=== PATIENT | male | born 1955 | race Hispanic/Latino ===

== ENCOUNTER 2020-11-16 18:29 | Inpatient (IN) | payer MEDICARE, BC, MEDICAID ==
[2020-11-16 18:52] LABS: Hemoglobin 8.7 g/dL (14.0-18.0); Mean Corpuscular HGB CONC 32.1 g/dL (32.0-36.0); Mean Corpuscular Hemoglobin 32.1 pg (27.0-31.0); Mean Corpuscular Volume 99.8 fL (78.0-98.0); Mean Platelet Volume 8.6 fL (7.4-10.4); Platelet Count 108 thou/uL (130-400); RBC Distribution Width 16.3 % (11.5-14.5); White Blood Cell (WBC) Count 10.8 thou/uL (4.8-10.8)
[2020-11-16 19:03] LABS: PTT 72.5 sec (22.9-36.1); Prothrombin Time 41.3 sec (12.0-14.7)
[2020-11-16 19:05] LABS: INR-International Normal Ratio 4.3
[2020-11-16 19:13] LABS: ALT (SGPT) 8 U/L (8-55); AST (SGOT) 15 U/L (5-34); Albumin 2.3 g/dL (3.4-4.8); Alkaline Phosphatase 74 U/L (40-110); Anion Gap 11 mmol/L (10-20); BUN (Urea Nitrogen) 20 mg/dL (8.4-25.7); Bilirubin, Total 0.6 mg/dL (0.2-1.2); Calc. Creatinine Clearance 0 mL/min (70-130); Calcium 6.7 mg/dL (7.8-10.44); Carbon Dioxide 22 mmol/L (23-31); Chloride 109 mmol/L (98-107); Globulin 3.3 g/dL (2.4-3.5); Glucose 77 mg/dL (80-115); Protein, Total 5.6 g/dL (5.8-8.1); Sodium 139 mmol/L (136-145)
[2020-11-16 19:22] LABS: Anisocytosis SLIGHT = 6-15 cells (100X) (0-5/hpf); Band 27 % (5-11); Lymphocytes 6 % (21-51); MDiff Complete? YES; Monocytes 15 % (0-10); Neutrophil 51 % (42-75); Platelet Morphology Comment Appears Decreased; Polychromasia SLIGHT = 2-3 cells (100X) (0-2/hpf)
[2020-11-16 19:24] LABS: Potassium 2.7 mmol/L (3.5-5.1)
[2020-11-16 19:33] LABS: CKMB 1.2 ng/mL (0-6.6)
[2020-11-16] MEDS ORDERED: Potassium Chloride 20 MEQ TAB ONE (19:41)
[2020-11-16] MEDS ORDERED: Ondansetron ODT 4 MG TAB PO PRN (20:12)
[2020-11-16 20:36] LABS: Magnesium 1.3 mg/dL (1.6-2.6)
[2020-11-16 20:44] LABS: Phosphorus 1.9 mg/dL (2.3-4.7)
[2020-11-16] MEDS ORDERED: Magnesium 2 GM/50 ML 2 GM in Premix Bag 1 BAG IVPB SCH (20:45)
[2020-11-16] MEDS ORDERED: Heparin 5,000 UNITS/ML VIAL SC SCH (21:00)
[2020-11-16] MEDS ORDERED: PHOS-NAK 1 PKT PACK PO SCH (21:00)
[2020-11-16] MEDS ORDERED: Potassium Chloride 40 MEQ in Sodium Chloride 0.9% 250 ML 250 ML IVPB SCH (21:30)
[2020-11-16 22:33] LABS: Troponin I 0.096 ng/mL (< 0.028)
[2020-11-16 22:42] VITALS: BMI 33.3
[2020-11-17 00:07] LABS: Anion Gap 16 mmol/L (10-20); BUN (Urea Nitrogen) 26 mg/dL (8.4-25.7); Calc. Creatinine Clearance 25 mL/min (70-130); Calcium 9.4 mg/dL (7.8-10.44); Carbon Dioxide 26 mmol/L (23-31); Chloride 96 mmol/L (98-107); Glucose 80 mg/dL (80-115); Potassium 3.6 mmol/L (3.5-5.1); Sodium 134 mmol/L (136-145)
[2020-11-17 01:23] LABS: Troponin I 0.146 ng/mL (< 0.028)
[2020-11-17 05:04] LABS: Anion Gap 15 mmol/L (10-20); BUN (Urea Nitrogen) 27 mg/dL (8.4-25.7); Calc. Creatinine Clearance 24 mL/min (70-130); Calcium 9.2 mg/dL (7.8-10.44); Carbon Dioxide 23 mmol/L (23-31); Chloride 96 mmol/L (98-107); Glucose 99 mg/dL (80-115); Potassium 4.3 mmol/L (3.5-5.1); Sodium 130 mmol/L (136-145)
[2020-11-17] MEDS ORDERED: Lactated Ringer's 250 ML IV SCH ×2 (05:15→06:30)
[2020-11-17] MEDS: Acetaminophen 325 MG TAB PO PRN ×2 (05:18→15:48)
[2020-11-17 05:24] LABS: Phosphorus 3.2 mg/dL (2.3-4.7)
[2020-11-17] MEDS ORDERED: Heparin 10,000 UNITS/ 10 ML VIAL ONE (08:55)
[2020-11-17 09:01] LABS: Band 14 % (5-11); Hemoglobin 10.4 g/dL (14.0-18.0); Hypochromia SLIGHT = 6-15 cells (100X) (0-5/hpf); Lymphocytes 9 % (21-51); MDiff Complete? YES; Mean Corpuscular HGB CONC 31.3 g/dL (32.0-36.0); Mean Corpuscular Hemoglobin 31.3 pg (27.0-31.0); Mean Corpuscular Volume 99.8 fL (78.0-98.0); Mean Platelet Volume 8.6 fL (7.4-10.4); Monocytes 9 % (0-10); Neutrophil 68 % (42-75); Platelet Count 142 thou/uL (130-400); Platelet Morphology Comment Appears Adequate; Polychromasia SLIGHT = 2-3 cells (100X) (0-2/hpf); RBC Distribution Width 16.3 % (11.5-14.5); Red Blood Cell (RBC) Count 3.32 mill/uL (4.70-6.10); Vacuoles SLIGHT; White Blood Cell (WBC) Count 14.9 thou/uL (4.8-10.8)
[2020-11-17 09:28] LABS: Troponin I 0.218 ng/mL (< 0.028)
[2020-11-17] MEDS: Sucralfate 1 GM TAB PO SCH ×2 (09:44→20:18)
[2020-11-17] MEDS: Vit A,C & E/Lutein/Minerals Tablet PO SCH (09:44)
[2020-11-17] MEDS: Folic Acid/Vit B Comp W-C PO SCH (09:44)
[2020-11-17] MEDS: Apixaban 2.5 MG TAB PO SCH ×2 (09:45→20:18)
[2020-11-17] MEDS: Fish Oil 1,000 MG CAP PO SCH (09:45)
[2020-11-17] MEDS ORDERED: Lactated Ringer's 500 ML IV SCH (10:15)
[2020-11-17 10:23] LABS: Hep B Surf Ag Non-Reactive S/CO (NonReactive)
[2020-11-17] MEDS ORDERED: Albumin 25% 25 GM/100 ML BOT IVPB SCH (10:24)
[2020-11-17] MEDS: Simvastatin 10 MG TAB PO SCH (20:18)
[2020-11-18 04:40] LABS: Hemoglobin 10.4 g/dL (14.0-18.0); Mean Corpuscular HGB CONC 30.6 g/dL (32.0-36.0); Mean Corpuscular Hemoglobin 30.9 pg (27.0-31.0); Mean Platelet Volume 8.3 fL (7.4-10.4); Platelet Count 149 thou/uL (130-400); RBC Distribution Width 16.4 % (11.5-14.5); Red Blood Cell (RBC) Count 3.36 mill/uL (4.70-6.10); White Blood Cell (WBC) Count 14.1 thou/uL (4.8-10.8)
[2020-11-18 04:59] LABS: Anion Gap 14 mmol/L (10-20); BUN (Urea Nitrogen) 18 mg/dL (8.4-25.7); Calc. Creatinine Clearance 34 mL/min (70-130); Calcium 9.8 mg/dL (7.8-10.44); Carbon Dioxide 25 mmol/L (23-31); Chloride 99 mmol/L (98-107); Glucose 97 mg/dL (80-115); Potassium 3.7 mmol/L (3.5-5.1); Sodium 134 mmol/L (136-145)
[2020-11-18 05:11] LABS: Band 28 % (5-11); Hypochromia SLIGHT = 6-15 cells (100X) (0-5/hpf); MDiff Complete? YES; Monocytes 10 % (0-10); Neutrophil 62 % (42-75); Platelet Morphology Comment Appears Adequate
[2020-11-18] MEDS: Midodrine HCl 5 MG TAB PO SCH (09:37)
[2020-11-18] MEDS: Apixaban 2.5 MG TAB PO SCH ×2 (09:37→20:17)
[2020-11-18] MEDS: Vit A,C & E/Lutein/Minerals Tablet PO SCH (09:39)
[2020-11-18] MEDS: Folic Acid/Vit B Comp W-C PO SCH (09:39)
[2020-11-18] MEDS: Sucralfate 1 GM TAB PO SCH ×2 (09:39→20:17)
[2020-11-18] MEDS: Fish Oil 1,000 MG CAP PO SCH (09:39)
[2020-11-18 09:58] LABS: Prothrombin Time 31.6 sec (12.0-14.7)
[2020-11-18 09:59] LABS: PTT 66.8 sec (22.9-36.1)
[2020-11-18 11:53] LABS: Hemoglobin 10.9 g/dL (14.0-18.0); Platelet Count 156 thou/uL (130-400)
[2020-11-18] MEDS: Simvastatin 10 MG TAB PO SCH (20:17)
[2020-11-19] MEDS: Acetaminophen 325 MG TAB PO PRN (03:31)
[2020-11-19 05:17] LABS: Hemoglobin 10.8 g/dL (14.0-18.0); Mean Corpuscular HGB CONC 30.9 g/dL (32.0-36.0); Mean Corpuscular Hemoglobin 31.1 pg (27.0-31.0); Mean Platelet Volume 8.5 fL (7.4-10.4); Platelet Count 166 thou/uL (130-400); RBC Distribution Width 16.3 % (11.5-14.5); Red Blood Cell (RBC) Count 3.47 mill/uL (4.70-6.10); White Blood Cell (WBC) Count 12.8 thou/uL (4.8-10.8)
[2020-11-19 05:34] LABS: Eosinophils 1 % (0-10); Lymphocytes 5 % (21-51); MDiff Complete? YES; Monocytes 6 % (0-10); Neutrophil 88 % (42-75); Nucleated RBC 1 % (0); Platelet Morphology Comment Appears Adequate
[2020-11-19 05:35] LABS: Anion Gap 14 mmol/L (10-20); BUN (Urea Nitrogen) 27 mg/dL (8.4-25.7); Calc. Creatinine Clearance 27 mL/min (70-130); Calcium 10.3 mg/dL (7.8-10.44); Carbon Dioxide 24 mmol/L (23-31); Chloride 96 mmol/L (98-107); Glucose 118 mg/dL (80-115); Potassium 3.8 mmol/L (3.5-5.1); Sodium 130 mmol/L (136-145)
[2020-11-19] MEDS ORDERED: Heparin 10,000 UNITS/ 10 ML VIAL ONE (08:56)
[2020-11-19] MEDS: Fish Oil 1,000 MG CAP PO SCH (08:57)
[2020-11-19] MEDS: Apixaban 2.5 MG TAB PO SCH ×2 (08:57→21:49)
[2020-11-19] MEDS: Midodrine HCl 5 MG TAB PO SCH ×2 (08:57→21:49)
[2020-11-19] MEDS: Folic Acid/Vit B Comp W-C PO SCH (08:57)
[2020-11-19] MEDS: Vit A,C & E/Lutein/Minerals Tablet PO SCH (08:57)
[2020-11-19] MEDS: Sucralfate 1 GM TAB PO SCH ×2 (08:58→21:49)
[2020-11-19] MEDS ORDERED: EPOETIN ALFA-EPBX (ESRD) 4,000 UNIT/ML VIAL SC SCH (11:00)
[2020-11-19] MEDS ORDERED: Epoetin (ESRD) 20,000 UNITS/ML SC SCH (11:00)
[2020-11-19] MEDS ORDERED: Albumin 25% 25 GM/100 ML BOT IVPB PRN (12:18)
[2020-11-19] MEDS ORDERED: Dextrose 50% Abboject 50 ML SYRINGE ONE (19:36)
[2020-11-19 20:17] LABS: Actual Bicarbonate (HCO3a) 28.3 mEq/L (22-28); Base Excess (BEa) 1.1 mEq/L (-2.0 to +3.0); CO2 Tension 57.7 mmHg (35.0-45.0); Calcium, Ionized (arterial) 1.31 mmol/L (1.12-1.30); Carboxyhemoglobin (COHb) 1.3 gm% (0.0-3.0); Hemoglobin (Hb) 11.6 g/dL (14.0-18.0); Potassium - ABG Lab 3.99 mmol/L (3.70-5.30); pH, Arterial 7.31 (7.35-7.45)
[2020-11-19 20:19] LABS: O2 Tension (PaO2), arterial 45.2 mmHg (> 80.0)
[2020-11-19 20:20] LABS: ALV-art Gradient 167.875 mmHg (0-20); Puncture Site RRA
[2020-11-19 20:52] LABS: Hemoglobin 10.8 g/dL (14.0-18.0); Mean Corpuscular Hemoglobin 30.6 pg (27.0-31.0); Mean Platelet Volume 8.3 fL (7.4-10.4); Platelet Count 131 thou/uL (130-400); RBC Distribution Width 16.1 % (11.5-14.5); Red Blood Cell (RBC) Count 3.55 mill/uL (4.70-6.10)
[2020-11-19 21:11] LABS: Anion Gap 22 mmol/L (10-20); BUN (Urea Nitrogen) 37 mg/dL (8.4-25.7); Calc. Creatinine Clearance 28 mL/min (70-130); Calcium 11.1 mg/dL (7.8-10.44); Carbon Dioxide 18 mmol/L (23-31); Chloride 98 mmol/L (98-107); Glucose 126 mg/dL (80-115); Magnesium 2.1 mg/dL (1.6-2.6); Potassium 5.1 mmol/L (3.5-5.1); Sodium 133 mmol/L (136-145)
[2020-11-19 21:17] LABS: Band 10 % (5-11); Hypochromia SLIGHT = 6-15 cells (100X) (0-5/hpf); Lymphocytes 6 % (21-51); MDiff Complete? YES; Monocytes 5 % (0-10); Neutrophil 79 % (42-75); Nucleated RBC 1 % (0); Platelet Morphology Comment Appears Adequate
[2020-11-19 21:21] LABS: Troponin I 0.262 ng/mL (< 0.028)
[2020-11-19] MEDS: Simvastatin 10 MG TAB PO SCH (21:49)
[2020-11-20] MEDS ORDERED: Heparin 1,000 UNITS/ML VIAL SLOW IVP SCH (02:15)
[2020-11-20] MEDS ORDERED: Heparin 1,000 UNITS/ML VIAL CATH SCH (02:45)
[2020-11-20 03:24] LABS: Hemoglobin 10.3 g/dL (14.0-18.0); Mean Corpuscular HGB CONC 31.6 g/dL (32.0-36.0); Mean Corpuscular Hemoglobin 31.9 pg (27.0-31.0); Mean Platelet Volume 8.1 fL (7.4-10.4); Platelet Count 168 thou/uL (130-400); RBC Distribution Width 16.2 % (11.5-14.5); Red Blood Cell (RBC) Count 3.23 mill/uL (4.70-6.10); White Blood Cell (WBC) Count 11.4 thou/uL (4.8-10.8)
[2020-11-20 03:36] LABS: INR-International Normal Ratio 2.5; Prothrombin Time 27.5 sec (12.0-14.7)
[2020-11-20 03:42] LABS: Band 16 % (5-11); Hypochromia SLIGHT = 6-15 cells (100X) (0-5/hpf); Lymphocytes 6 % (21-51); MDiff Complete? YES; Monocytes 1 % (0-10); Neutrophil 77 % (42-75); Platelet Morphology Comment Appears Adequate
[2020-11-20 03:57] LABS: Anion Gap 20 mmol/L (10-20); BUN (Urea Nitrogen) 38 mg/dL (8.4-25.7); Calc. Creatinine Clearance 27 mL/min (70-130); Calcium 10.8 mg/dL (7.8-10.44); Carbon Dioxide 22 mmol/L (23-31); Chloride 95 mmol/L (98-107); Glucose 111 mg/dL (80-115); Potassium 4.2 mmol/L (3.5-5.1); Sodium 133 mmol/L (136-145)
[2020-11-20] MEDS ORDERED: MEROPENEM 1 GM/50 ML 1 GM in Premix Bag 1 BAG IVPB SCH (05:00)
[2020-11-20] MEDS: Midodrine HCl 5 MG TAB PO SCH (08:11)
[2020-11-20] MEDS: Folic Acid/Vit B Comp W-C PO SCH (08:11)
[2020-11-20] MEDS: Apixaban 2.5 MG TAB PO SCH (08:11)
[2020-11-20] MEDS: Fish Oil 1,000 MG CAP PO SCH (08:11)
[2020-11-20] MEDS: Sucralfate 1 GM TAB PO SCH (08:12)
[2020-11-20] MEDS: Vit A,C & E/Lutein/Minerals Tablet PO SCH (08:12)
[2020-11-20 11:36] VITALS: BP 86/47; TEMP 98.6
[2020-11-20] MEDS ORDERED: Albumin 25% 25 GM/100 ML BOT IVPB SCH (12:00)
[2020-11-20] MEDS ORDERED: Atropine Sulfate 1 mg/10 ml Syringe ONE (12:31)
[2020-11-20 12:55] LABS: Hemoglobin 10.4 g/dL (14.0-18.0); Mean Corpuscular HGB CONC 28.9 g/dL (32.0-36.0); Mean Corpuscular Hemoglobin 29.6 pg (27.0-31.0); Mean Platelet Volume 8.6 fL (7.4-10.4); Platelet Count 167 thou/uL (130-400); RBC Distribution Width 16.2 % (11.5-14.5); Red Blood Cell (RBC) Count 3.51 mill/uL (4.70-6.10)
[2020-11-20 13:04] LABS: ALT (SGPT) 16 U/L (8-55); AST (SGOT) 34 U/L (5-34); Albumin 3.1 g/dL (3.4-4.8); Alkaline Phosphatase 118 U/L (40-110); Anion Gap 19 mmol/L (10-20); BUN (Urea Nitrogen) 42 mg/dL (8.4-25.7); Bilirubin, Total 1.5 mg/dL (0.2-1.2); Calc. Creatinine Clearance 24 mL/min (70-130); Calcium 10.4 mg/dL (7.8-10.44); Carbon Dioxide 22 mmol/L (23-31); Chloride 95 mmol/L (98-107); Glucose 113 mg/dL (80-115); Magnesium 2.1 mg/dL (1.6-2.6); Phosphorus 4.3 mg/dL (2.3-4.7); Potassium 4.5 mmol/L (3.5-5.1); Protein, Total 8.1 g/dL (5.8-8.1); Sodium 131 mmol/L (136-145)
[2020-11-20 13:12] LABS: Troponin I 0.471 ng/mL (< 0.028)
[2020-11-20] MEDS ORDERED: Lactated Ringer's 500 ML IV SCH (13:15)
[2020-11-20 13:22] LABS: Anisocytosis SLIGHT = 6-15 cells (100X) (0-5/hpf); Band 28 % (5-11); Dohle Bodies SLIGHT; Hypochromia SLIGHT = 6-15 cells (100X) (0-5/hpf); Lymphocytes 5 % (21-51); MDiff Complete? YES; Macrocytosis SLIGHT = 6-15 cells (100X) (0-5/hpf); Metamyelocyte 1 % (0-0); Monocytes 2 % (0-10); Neutrophil 64 % (42-75); Platelet Morphology Comment Appears Adequate; Polychromasia SLIGHT = 2-3 cells (100X) (0-2/hpf); Vacuoles SLIGHT
[2020-11-20 13:26] LABS: SARS-CoV-2 PCR by NAA Not Detected (NotDetected)
[2020-11-20] MEDS ORDERED: DOPamine 400 MG/D5W 250 ML 250 ML IVPB SCH (13:30)
[2020-11-20 15:56] LABS: CKMB 2.3 ng/mL (0-6.6)
[2020-11-21] MEDS ORDERED: Meropenem 500 MG in Sodium Chloride 0.9% 100 ML IVPB SCH (05:00)
== END 2020-11-20 19:55 | disposition hospice, home (50) | DRG 640 ==
LOC: ERS 18:29 → 2NO 19:38 → CCU 11-20 12:54
PROVIDERS: ADMIT Family Medicine; ATTEND Family Medicine
PROC: 5A1D70Z Performance of Urinary Filtration, Intermittent, Less than 6 Hours Per Day (ICD-10-PCS; principal; 2020-11-17)
DX: E86.9 Volume depletion, unspecified (principal); N18.6 End stage renal disease; I21.4 Non-ST elevation (NSTEMI) myocardial infarction; Z20.822 Contact with and (suspected) exposure to COVID-19; Z51.5 Encounter for palliative care; Z66 Do not resuscitate; R57.1 Hypovolemic shock; A41.9 Sepsis, unspecified organism; R65.21 Severe sepsis with septic shock; J96.21 Acute and chronic respiratory failure with hypoxia; J96.22 Acute and chronic respiratory failure with hypercapnia; I48.20 Chronic atrial fibrillation, unspecified; E87.6 Hypokalemia; I95.89 Other hypotension; E11.22 Type 2 diabetes mellitus with diabetic chronic kidney disease; I25.10 Atherosclerotic heart disease of native coronary artery without angina pectoris; E66.9 Obesity, unspecified; E83.42 Hypomagnesemia; R77.8 Other specified abnormalities of plasma proteins; I45.10 Unspecified right bundle-branch block; E11.51 Type 2 diabetes mellitus with diabetic peripheral angiopathy without gangrene; D63.1 Anemia in chronic kidney disease; E78.00 Pure hypercholesterolemia, unspecified; I08.3 Combined rheumatic disorders of mitral, aortic and tricuspid valves; I50.9 Heart failure, unspecified; I11.0 Hypertensive heart disease with heart failure; E83.39 Other disorders of phosphorus metabolism; E86.0 Dehydration; R00.1 Bradycardia, unspecified; Z95.5 Presence of coronary angioplasty implant and graft; Z88.1 Allergy status to other antibiotic agents; Z99.2 Dependence on renal dialysis; Z98.84 Bariatric surgery status; Z87.891 Personal history of nicotine dependence; Z79.899 Other long term (current) drug therapy; Z79.01 Long term (current) use of anticoagulants; Z68.38 Body mass index [BMI] 38.0-38.9, adult; Z98.42 Cataract extraction status, left eye; Z89.422 Acquired absence of other left toe(s); Z89.421 Acquired absence of other right toe(s); Z82.49 Family history of ischemic heart disease and other diseases of the circulatory system; Z83.3 Family history of diabetes mellitus; Z84.1 Family history of disorders of kidney and ureter; Z86.16 Personal history of COVID-19; Z79.51 Long term (current) use of inhaled steroids
CPT/HCPCS: 36415; 36416; 36600; 71045; 80048; 80053; 82553; 82805; 83735; 83880; 84100; 84145; 84484; 85025; 85610; 85730; 87040; 87077; 87149; 87186; 87205; 87340; 90935; 93005; 93010; 93306; 93975; G0257; J1644; J2185; J3475; J3480; J7050; P9047; Q0162; Q5105; U0003; U0005